=== PATIENT | female | born 1965 | race Caucasian/White ===

== ENCOUNTER 2017-05-01 14:36 | Emergency (ER) | payer MEDICAID ==
[~2017-05-01] VITALS: Ht 170.2 cm; Wt 94.3 kg
[2017-05-01 14:39] VITALS: BP 130/76
== END 2017-05-01 15:31 | disposition home or self-care (01) ==
LOC: ED 15:15
DX: K02.9 Dental caries, unspecified (principal); K08.89 Other specified disorders of teeth and supporting structures
CPT/HCPCS: 99283

== ENCOUNTER 2019-06-21 11:52 | Observation (INO) | payer OTHER ==
[~2019-06-21] VITALS: Ht 170.2 cm; Wt 83.1 kg
[~2019-06-21 11:52] MED LIST: CEFAZOLIN 1,000 MG ONE; DEXAMETHASONE 4 MG/ML, 1ML ONE; ONDANSETRON 2MG/ML, 2ML ONE; PROPOFOL 10 MG/ML, 20ML ONE; ROCURONIUM 10MG/ML,5ML ONE; SUCCINYLCHOLINE 20 MG/ML, 10ML ONE
[2019-06-21 12:32] VITALS: BP 122/75
[2019-06-21] MEDS ORDERED: PROG100C16 PO (12:44)
[2019-06-21] MEDS ORDERED: DULO60CA56 PO (12:44)
[2019-06-21] MEDS ORDERED: ESTR0.45 PO (12:44)
[2019-06-21] MEDS ORDERED: LAMO25TB7 PO (12:44)
[2019-06-21] MEDS ORDERED: NITR100C PO (12:44)
[2019-06-21] MEDS ORDERED: MIDAZOLAM 1 MG/ML, 2ML ONE (13:34)
[2019-06-21] MEDS ORDERED: FENTANYL PF 250 MCG/5ML ONE (13:34)
[2019-06-21] MEDS ORDERED: OXYcodone 5 MG/5 ML ORAL.SOL UDC PO PRN (14:00)
[2019-06-21] MEDS ORDERED: MEPERIDINE/PF 25MG/0.5ML IVPush PRN (14:00)
[2019-06-21] MEDS ORDERED: KETOROLAC 30 MG/1 ML IV PRN (14:00)
[2019-06-21] MEDS ORDERED: ONDANSETRON 2MG/ML, 2ML IVPush PRN (14:00)
[2019-06-21] MEDS ORDERED: ALBUTEROL SULFATE 2.5 MG/3 ML NPPB PRN (14:00)
[2019-06-21] MEDS ORDERED: METOCLOPRAMIDE 5 MG/ML, 2ML IV PRN (14:00)
[2019-06-21] MEDS ORDERED: hydrALAzine 20 MG/ML, 1ML IV PRN (14:00)
[2019-06-21] MEDS ORDERED: LABETALOL 5MG/ML, 20ML IV PRN (14:00)
[2019-06-21] MEDS ORDERED: HYDROmorphone 1 MG/ML, 1ML INJ IV PRN (14:00)
[2019-06-21] MEDS ORDERED: ONDANSETRON 2MG/ML, 2ML ONE (15:22)
[2019-06-21] MEDS: PROMETHAZINE 25 MG/ML, 1ML IV PRN ×2 (15:22→15:40)
[2019-06-21] MEDS ORDERED: PROMETHAZINE 25 MG/ML, 1ML ONE (15:31)
[2019-06-21] MEDS ORDERED: FENTANYL PF 100 MCG/2ML ONE ×2 (15:44→16:12)
[2019-06-21] MEDS ORDERED: OXYcodone 5 MG/5 ML ORAL.SOL UDC ONE (15:45)
[2019-06-21] MEDS: FENTANYL PF 100 MCG/2ML IV PRN ×3 (15:47→16:11)
[2019-06-21] MEDS ORDERED: DULOXETINE MC SCH (17:30)
[2019-06-21] MEDS: D5%-0.45NACL+KCL 20MEQ 1,000 ML IV SCH (18:01)
[2019-06-21] MEDS: HYDROmorphone 2 MG/ML, 1ML IV PRN (18:08)
[2019-06-21 19:00] VITALS: BP 114/76
[2019-06-21] MEDS ORDERED: ACETAMINOPHEN 500 MG TABLET PO SCH (21:00)
[2019-06-21] MEDS: HYDROcodone/APAP 5/325 TABLET PO PRN (21:32)
[2019-06-21 23:48] VITALS: BP 94/58
[2019-06-22] MEDS: D5%-0.45NACL+KCL 20MEQ 1,000 ML IV SCH ×4 (01:34→22:47)
[2019-06-22] MEDS: HYDROcodone/APAP 5/325 TABLET PO PRN ×2 (03:21→10:41)
[2019-06-22] MEDS: ACETAMINOPHEN 500 MG TABLET PO PRN ×2 (03:22→15:33)
[2019-06-22 03:51] VITALS: BP 96/44
[2019-06-22 05:58] LABS: ANION GAP 4 mmol/L (5-15); CALCIUM 7.9 mg/dL (8.5-10.1); CHLORIDE 109 mmol/L (98-107)
[2019-06-22 06:01] LABS: CREATININE 0.66 mg/dL (0.55-1.02)
[2019-06-22] MEDS: NITROFURANTOIN 50 MG CAPSULE PO SCH (08:10)
[2019-06-22 08:13] VITALS: BP 96/47
[2019-06-22 14:08] VITALS: BP 100/49
[2019-06-22] MEDS: ONDANSETRON 2MG/ML, 2ML IV PRN (16:45)
[2019-06-22] MEDS: HYDROmorphone 2 MG/ML, 1ML IV PRN (16:54)
[2019-06-22 18:52] VITALS: BP 109/60
[2019-06-23 01:19] VITALS: BP 115/62
[2019-06-23] MEDS: ACETAMINOPHEN 500 MG TABLET PO PRN ×2 (01:28→14:32)
[2019-06-23] MEDS: ONDANSETRON 2MG/ML, 2ML IV PRN ×2 (01:29→09:46)
[2019-06-23] MEDS: OXYcodone IR 5MG TABLET PO PRN ×5 (01:37→21:11)
[2019-06-23] MEDS: HYDROmorphone 2 MG/ML, 1ML IV PRN (02:25)
[2019-06-23 05:28] LABS: BASOPHILS # (AUTO) 0.01 x10^3/uL (0-0.1); BASOPHILS % (AUTO) 0 % (0-1); EOSINOPHILS % (AUTO) 0 % (1-7); LYMPHOCYTES # (AUTO) 1.03 x10^3/uL (1-3.4); LYMPHOCYTES % (AUTO) 10 % (22-44); MD NO; MEAN CORPUSCULAR HGB CONC 33.4 g/dL (32.4-35.8); MEAN CORPUSCULAR VOLUME 95.7 fL (80-100); MEAN PLATELET VOLUME 8.3 fL (7.4-10.4); MONOCYTES # (AUTO) 1.04 x10^3/uL (0.2-0.8); MONOCYTES % (AUTO) 10 % (2-9); NEUTROPHILS # (AUTO) 8.24 x10^3/uL (1.8-6.8); NEUTROPHILS % (AUTO) 80 % (42-75); PLATELET COUNT 255 x10^3/uL (130-400); RED BLOOD COUNT 3.77 x10^6/uL (3.82-5.3); RED CELL DISTRIBUTION WIDTH 12.3 % (9.6-15.2)
[2019-06-23 05:33] LABS: ANION GAP 4 mmol/L (5-15); CALCIUM 8.2 mg/dL (8.5-10.1); CHLORIDE 108 mmol/L (98-107); CREATININE 0.63 mg/dL (0.55-1.02)
[2019-06-23] MEDS: D5%-0.45NACL+KCL 20MEQ 1,000 ML IV SCH ×2 (05:48→15:00)
[2019-06-23 07:06] VITALS: BP 118/61
[2019-06-23] MEDS: NITROFURANTOIN 50 MG CAPSULE PO SCH (09:40)
[2019-06-23] MEDS: DULOXETINE 60 MG HOMEMEDPO SCH (11:30)
[2019-06-23] MEDS: LAMOTRIGINE 25 MG HOMEMEDPO SCH (11:30)
[2019-06-23] MEDS: CONJUGATED ESTROGENS 0.45 MG HOMEMEDPO SCH (11:30)
[2019-06-23] MEDS ORDERED: PROGESTERONE 100 MG CAPSULE PO SCH (11:30)
[2019-06-23] MEDS: PROGESTERONE 100 MG CAPSULE PO SCH (12:35)
[2019-06-23 13:53] VITALS: BP 121/68
[2019-06-23] MEDS ORDERED: D5%-0.45NACL+KCL 20MEQ 1,000 ML IV SCH (17:30)
[2019-06-23 19:09] VITALS: BP 109/64
[2019-06-24 00:54] VITALS: BP 103/60
[2019-06-24] MEDS: OXYcodone IR 5MG TABLET PO PRN (04:12)
[2019-06-24] MEDS: ACETAMINOPHEN 500 MG TABLET PO PRN (04:15)
[2019-06-24 07:53] VITALS: BP 97/57
[2019-06-24] MEDS: NITROFURANTOIN 50 MG CAPSULE PO SCH (08:22)
[2019-06-24] MEDS: PROGESTERONE 100 MG CAPSULE PO SCH (08:22)
[2019-06-24] MEDS: CONJUGATED ESTROGENS 0.45 MG HOMEMEDPO SCH (08:23)
[2019-06-24] MEDS: LAMOTRIGINE 25 MG HOMEMEDPO SCH (08:24)
[2019-06-24] MEDS: DULOXETINE 60 MG HOMEMEDPO SCH (08:25)
== END 2019-06-24 11:40 | disposition home or self-care (01) ==
LOC: OUT 11:52 → 4NE 16:50 → UNDOADMOB 17:01 → OUT 17:01 → 4NE 17:01 → INTOOBSV 17:01 → 4NE 06-22 15:20
PROVIDERS: ADMIT Urology; ATTEND Urology
DX: C64.1 Malignant neoplasm of right kidney, except renal pelvis (principal); R09.02 Hypoxemia
CPT/HCPCS: 36415; 52356; 71046; 80048; 85014; 85018; 85025; 88305; 96374; 96375; 96376; C1758; C1769; C2617; G0378; J0330; J0690; J1100; J1170; J2250; J2405; J2550; J2704; J3010; J3480